=== PATIENT | female | born 1980 | race Caucasian/White ===

== ENCOUNTER 2017-07-06 07:59 | Emergency (ER) | payer OTHER, MEDICAID ==
[~2017-07-06] VITALS: Ht 165.1 cm; Wt 80.0 kg
[~2017-07-06 07:59] MED LIST: ALBUAER3 INH; BACT800T5 PO; DIFL150T PO; NYST1000 SWISH-SWAL
[2017-07-06 08:01] VITALS: BP 159/104; PULSE 91; RESP 16; TEMP 97.8; O2SAT 97
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
[2017-07-06] MEDS ORDERED: CYCL10TA PO (08:22)
[2017-07-06] MEDS ORDERED: IBUP-232 PO (08:22)
[2017-07-06] MEDS ORDERED: KETOROLAC TROMETHAMINE 60 MG/2 ML (IM) VIAL IM ONE (08:30)
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
== END 2017-07-06 09:06 | disposition home or self-care (01) ==
LOC: NEPD 07:59
DX: S39.012A Strain of muscle, fascia and tendon of lower back, initial encounter (principal); J45.909 Unspecified asthma, uncomplicated; F17.200 Nicotine dependence, unspecified, uncomplicated; V43.52XA Car driver injured in collision with other type car in traffic accident, initial encounter; Z79.899 Other long term (current) drug therapy
CPT/HCPCS: 72100; 96372; 99284; J1885